=== PATIENT | female | born 1945 | race Caucasian/White ===

== ENCOUNTER → 2017-02-01 | Outpatient (CLI) | payer MEDICARE ==
[~2017-02-01] MED LIST: ALBU2.5I INH; ENAL10TA PO; FLUT1INH7 INH; IPRA0.02 NEB; MEDR4PAK PO; MULTCHW PO; NIFE1TAB85 PO; PRED20 PO; ZOFR4TAB3 SL
[2017-02-01 13:54] LABS: BLOOD GAS CARBOXYHEMOGLOBIN 2.3 % (0-4); BLOOD GAS HCO3 22 mmol/L (22-26); BLOOD GAS O2 HGB SATURATION 89 % (90-100); BLOOD GAS OXYGEN CONTENT 17.6 Vol % (12.0-20.0); BLOOD GAS PCO2 27 mmHg (38-42); BLOOD GAS PO2 53 mmHg (61-120); TEMP CORR TO 98.6
[2017-02-01 13:55] LABS: CRITICAL VALUE YES; DRAW SITE RT RADIAL; LITER FLOW 2 L/M; NUMBER OF ARTERIAL PUNCTURES 1; OXYGEN DEVICE NASAL CANNULA; STAT NO; ULNAR PULSE PRESENT
== END ==
LOC: HRSP 12:29
PROVIDERS: ATTEND Internal Medicine Sleep Medicine
DX: R06.89 Other abnormalities of breathing (principal)
CPT/HCPCS: 36600; 82805

== ENCOUNTER 2017-02-25 16:21 | Emergency (ER) | payer MEDICARE ==
[~2017-02-25] VITALS: Ht 157.5 cm; Wt 81.0 kg
[~2017-02-25 16:21] MED LIST changes: -ENAL10TA PO; -FLUT1INH7 INH; -MEDR4PAK PO
[2017-02-25 16:24] VITALS: BP 146/67; PULSE 112; RESP 20; TEMP 99.1; O2SAT 86
[2017-02-25] MEDS ORDERED: FLUT1INH7 INH (16:49)
[2017-02-25] MEDS ORDERED: ENAL10TA PO (16:49)
[2017-02-25] MEDS ORDERED: ORPHENADRINE INJ 60 MG/2 ML AMP IM ONE (17:00)
[2017-02-25] MEDS ORDERED: methylPREDNISolone SOD SUCC 125 MG/2 ML VIAL IM ONE (17:00)
--- NOTE | 2017-02-25 17:00 | PD ---
HPI Chief Complaint: Pain: Acute or Chronic Time Seen by Provider: 16:44 Travel History International Travel<30 days: No Contact w/Intl Traveler<30days: No Traveled to known affect area: No History of Present Illness HPI 71-year-old female presents to the emergency department for acute on chronic left sciatic pain that is worsened over the last week. States that she has had this pain for a while but in the last 2 days has really been worse. Describes the pain as severe. Nothing seems to make it better or worse. Tylenol or Motrin [id number] have not helped. She does have a history of COPD oxygen dependent. She denies weakness, loss of bowel or bladder function, fever , chills, chest pain, abdominal pain, trauma, personal history of cancer. PFSH Past Medical History Autoimmune Disease: No Anxiety: No Depression: No Cancer: No Cardiovascular Problems: No High Cholesterol: Yes (STOP TAKING MEDICATION) Chest Pain: No Diabetes: No Endocrine: No Gastrointestinal Disorders: Yes (HX COLOSTOMY, GWENDOLYN) GERD: No Glaucoma: No Genitourinary: Yes Hepatitis: No Hiatal Hernia: No Hypertension: Yes Immune Disorder: No Implanted Vascular Access Dvce: Yes Kidney Stones: No Musculoskeletal: Yes Neurologic: No Psychiatric: No Reproductive: No Respiratory: Yes (COPD) Renal Failure: No Sleep Apnea: No Thyroid Disease: No Ulcer: No ?: Not Past Surgical History Abdominal Surgery: Yes (UMBILICAL HERNIA, COLOSTOMY; CHOLECYSTECTOMY) AICD: No Arteriovenous Shunt: No Body Medical Devices: PROCEED MESH UMBILICAL HERNIA REPAIR Cardiac Surgery: No Cholecystectomy: Yes (2000) Ear Surgery: No Endocrine Surgery: No Eye Surgery: No Genitourinary Surgery: No Gynecologic Surgery: No Insulin Pump: No Joint Replacement: No Oral Surgery: No Pacemaker: No Thoracic Surgery: No Other Surgery: Yes Social History Alcohol Use: No Tobacco Use: No (1 1/2 PACKS DAY X 47 YEARS) Substance Use: No Allergies-Medications (Allergen,Severity, Reaction): Coded Allergies: hydrocodone (Unverified Adverse Reaction, Intermediate, emesis, 02/25/17) Uncoded Allergies: NOT ALLERGIC TO LOPID OR LISINOPRIL STATES PATIENT (Adverse Reaction, Mild, 06/07/10) Reported Meds & Prescriptions Reported Meds & Active Scripts Active Medrol Dosepak (Methylprednisolone) 4 Mg Dspk 4 Mg PO DIRECTED Per Pharmacist direction Atrovent Ud 0.02% (0.5 Mg/2.5 Ml) (Ipratropium Basile) 0.5 Mg/2.5 Ml Nebu 0.5 Mg NEB Q6HR NEB PRN Resp: Albuterol 2.5 Mg/3 Ml Neb (Albuterol Sulfate) 2.5 Mg/3 Ml Nebu 2.5 Mg INH Q6H PRN Reported Enalapril (Enalapril Maleate) 10 Mg Tab 10 Mg PO DAILY Breo Ellipta Inh (Fluticasone/Vilanterol) 200-25 Mcg/Act Inh 1 Puff INH BID Use daily at the same time. Review of Systems Except as stated in HPI: all other systems reviewed are Neg Physical Exam Narrative GENERAL: Well-developed well-nourished SKIN: Focused skin assessment warm/dry. HEAD: Atraumatic. Normocephalic. [place]blood facies EYES: Pupils equal and round. No scleral icterus. No injection or drainage. ENT: No nasal bleeding or discharge. Mucous membranes pink and moist. NECK: Trachea midline. No JVD. CARDIOVASCULAR: Regular rate and rhythm. No murmur appreciated. RESPIRATORY: No accessory muscle use. Clear to auscultation. Breath sounds equal bilaterally. GASTROINTESTINAL: Abdomen soft, non-tender, nondistended. Hepatic and splenic margins not palpable. MUSCULOSKELETAL: No obvious deformities. No clubbing. No cyanosis. No edema. BACK: No CVA tenderness. No rash. No point tenderness on palpation of the spine. Tenderness to palpation of the left gluteus NEUROLOGICAL: Awake and alert. No obvious cranial nerve deficits. Motor grossly within normal limits. Normal speech. PSYCHIATRIC: Appropriate mood and affect; insight and judgment normal. Data Data Last Documented VS Vital Signs Date Time Temp Pulse Resp B/P (MAP) Pulse Ox O2 Delivery O2 Flow Rate FiO2 02/25/17 16:24 99.1 112 20 146/67 (93) 86 Orders Orders Methylprednisolone So Succ Inj (Solumedr (02/25/17 17:00) Orphenadrine Inj (Norflex Inj) (02/25/17 17:00) Ed Discharge Order (02/25/17 17:07) MDM Medical Decision Making Medical Screen Exam Complete: Yes Emergency Medical Condition: Yes Differential Diagnosis Left sciatica versus low back sprain versus strain Narrative Course 71-year-old female presents to emergency Department complaining of acute on chronic left sciatica pain. States that she has been treated for this before but the last 2 days has been the worse. Her pain radiates from her left gluteal to the toes. No red flag symptoms or history. No IVDU. Physical exam is consistent with sciatica pain. Examination of the spine demonstrates no step-off, crepitus, or tenderness. Neurovascularly intact. Solu Medrol and Norflex in the ED. Advised patient to return to her primary care physician for further treatment and evaluation Advised when to return to the emergency department Diagnosis Primary Impression: Sciatica Qualified Codes: M54.32 - Sciatica, left side Referrals: Orthopedist Primary Care Physician Additional Instructions: Perform light stretches of the lower back and legs, and alternate heat and ice packs. If you develop increased pain, weakness, fever, chills, or bowel or bladder issues, return to the ED for further treatment and evaluation. Follow up with your primary care physician in 2-3 days. Scripts Methylprednisolone Dosepak (Medrol Dosepak) 4 Mg Dspk 4 MG PO DIRECTED, #1 DSPK 0 Refills Per Pharmacist direction Prov: Billy Ramos MD 02/25/17 Disposition: 01 DISCHARGE HOME Condition: Stable Madelaine Montemayor Feb 25, 2017 17:00
[2017-02-25] MEDS ORDERED: MEDR4PAK PO (17:14)
== END 2017-02-25 17:24 | disposition home or self-care (01) ==
LOC: PHEFT 16:21
DX: M54.32 Sciatica, left side (principal); I10 Essential (primary) hypertension; J44.9 Chronic obstructive pulmonary disease, unspecified; Z87.891 Personal history of nicotine dependence; Z99.81 Dependence on supplemental oxygen
CPT/HCPCS: 96372; 99284; J2360; J2930

== ENCOUNTER 2017-04-07 10:24 | Observation (INO) | payer MEDICARE ==
[~2017-04-07] VITALS: Ht 157.5 cm; Wt 88.9 kg
[2017-04-07] VITALS (18 sets, daily range): BP systolic 140–212; BP diastolic 60–91; PULSE 90–124; RESP 18–36; TEMP 96.5–98.4; O2SAT 86–94
[~2017-04-07 10:24] MED LIST changes: +ENAL10TA PO; +FLUT1INH7 INH; +MEDR4PAK PO; -MULTCHW PO; -NIFE1TAB85 PO; -PRED20 PO; -ZOFR4TAB3 SL
[2017-04-07] MEDS ORDERED: IODIXANOL 320 MG/ML 10 ML VIAL (for Rad CT) IVCONTRAST ONE (10:25)
[2017-04-07] MEDS ORDERED: CENTCHW4 CHEW (10:34)
[2017-04-07] MEDS ORDERED: IPRASOL INH (10:34)
[2017-04-07] MEDS ORDERED: THEO600T PO (10:34)
[2017-04-07] MEDS ORDERED: IBUP200T47 PO (10:34)
[2017-04-07] MEDS ORDERED: MONT10TA4 PO (10:34)
[2017-04-07] MEDS ORDERED: FLUT1INH INH (10:34)
[2017-04-07] MEDS ORDERED: CETI-6 (10:35)
[2017-04-07] MEDS ORDERED: methylPREDNISolone SOD SUCC 125 MG/2 ML VIAL IV PUSH ONE (10:45)
[2017-04-07] MEDS: RESP: ALBUTEROL 2.5 MG/IPRATROPIUM 0.5 MG NEB (SCH) INH ×2 (10:50→10:51)
[2017-04-07 10:53] LABS: AUTOMATED NEUTROPHIL # 9.4 TH/MM3 (1.8-7.7); BASOPHIL # 0.3 TH/MM3 (0-0.2); BASOPHIL % 2.1 % (0.0-2.0); EOSINOPHIL # 0.5 TH/MM3 (0-0.4); EOSINOPHIL % 3.6 % (0.0-4.0); HEMATOCRIT 40.8 % (35.0-46.0); HEMO FLAGS DIFF FINAL; LYMPH % 15.7 % (9.0-44.0); MEAN CELL VOLUME 90.9 FL (80.0-100.0); MEAN CORPUSCULAR HEMOGLOBIN 29.6 PG (27.0-34.0); MEAN CORPUSCULAR HGB CONC 32.6 % (32.0-36.0); MONO % 4.1 % (0.0-8.0); NEUT % 74.5 % (16.0-70.0); PLATELET COUNT 273 TH/MM3 (150-450); RED BLOOD COUNT 4.49 MIL/MM3 (4.00-5.30); RED CELL DISTRIBUTION WIDTH 14.8 % (11.6-17.2); WHITE BLOOD COUNT 12.7 TH/MM3 (4.0-11.0)
[2017-04-07 10:57] LABS: CHLORIDE 109 MEQ/L (98-107); POTASSIUM 3.6 MEQ/L (3.5-5.1); SODIUM (NA) 144 MEQ/L (136-145)
[2017-04-07 11:00] LABS: ANION GAP 11 MEQ/L (5-15); BICARBONATE 23.9 MEQ/L (21.0-32.0)
[2017-04-07 11:01] LABS: BLOOD UREA NITROGEN 17 MG/DL (7-18)
[2017-04-07 11:04] LABS: ALT (GPT) 44 U/L (10-53); AST (GOT) 34 U/L (15-37); GLOMERULAR FILTRATION RATE 34 ML/MIN (>89)
[2017-04-07 11:05] LABS: TOTAL BILIRUBIN ADULT 0.6 MG/DL (0.2-1.0)
[2017-04-07 11:07] LABS: ALKALINE PHOSPHATASE 82 U/L (45-117)
[2017-04-07 11:29] LABS: BLOOD GAS CARBOXYHEMOGLOBIN 2.2 % (0-4); BLOOD GAS HCO3 25 mmol/L (22-26); BLOOD GAS METHEMOGLOBIN 0.8 % (0-2); BLOOD GAS O2 HGB SATURATION 89 % (90-100); BLOOD GAS OXYGEN CONTENT 16.2 Vol % (12.0-20.0); BLOOD GAS PCO2 31 mmHG (38-42); BLOOD GAS PO2 61 mmHG (61-120); BLOOD GAS TOTAL HGB 12.9 G/DL (12.0-16.0); TEMP CORR TO 98.6
[2017-04-07 11:30] LABS: CRITICAL VALUE YES; DRAW SITE LT RADIAL; NUMBER OF ARTERIAL PUNCTURES 1; OXYGEN DEVICE NASAL CANNULA; STAT YES; ULNAR PULSE Y; VENT SETTINGS 4
--- NOTE | 2017-04-07 11:47 | PD ---
HPI Chief Complaint: Respiratory Symptoms Time Seen by Provider: 10:37 Travel History International Travel<30 days: No Contact w/Intl Traveler<30days: No Traveled to known affect area: No History of Present Illness HPI 71-year-old female complains of shortness of breath. Patient has history of COPD and chronically has shortness of breath. Patient's on home O2 3 L nasal cannula. Patient states that she has increasing shortness of breath with the past few days. Patient denies any coughing congestion. Patient denies any fever chills. Patient denies any chest pain. Patient has been using her nebulizer at home about twice a day. Patient also on Breo inhaler, theophylline , montelukast. PFSH Past Medical History Autoimmune Disease: No Anxiety: No Depression: No Cancer: No Cardiovascular Problems: No High Cholesterol: Yes (STOP TAKING MEDICATION) Chest Pain: No COPD: Yes Diabetes: No Diminished Hearing: No Endocrine: No Gastrointestinal Disorders: Yes (HX COLOSTOMY, GWENDOLYN) GERD: No Glaucoma: No Genitourinary: Yes Hepatitis: No Hiatal Hernia: No Hypertension: Yes Immune Disorder: No Implanted Vascular Access Dvce: Yes Kidney Stones: No Musculoskeletal: Yes (LOWER BACK PAIN) Neurologic: No Psychiatric: No Reproductive: No Respiratory: Yes (COPD) Renal Failure: No Sleep Apnea: No Thyroid Disease: No Ulcer: No Tetanus Vaccination: > 5 Years Influenza Vaccination: Yes Past Surgical History Abdominal Surgery: Yes (UMBILICAL HERNIA, COLOSTOMY; CHOLECYSTECTOMY) AICD: No Arteriovenous Shunt: No Body Medical Devices: PROCEED MESH UMBILICAL HERNIA REPAIR Cardiac Surgery: No Cholecystectomy: Yes (2000) Ear Surgery: No Endocrine Surgery: No Eye Surgery: No Genitourinary Surgery: No Gynecologic Surgery: No Insulin Pump: No Joint Replacement: No Oral Surgery: No Pacemaker: No Thoracic Surgery: No Other Surgery: Yes Social History Alcohol Use: No Tobacco Use: No (1 1/2 PACKS DAY X 47 YEARS) Substance Use: No Allergies-Medications (Allergen,Severity, Reaction): Coded Allergies: hydrocodone (Unverified Adverse Reaction, Intermediate, emesis, 04/07/17) Uncoded Allergies: NOT ALLERGIC TO LOPID OR LISINOPRIL STATES PATIENT (Adverse Reaction, Mild, 06/07/10) Reported Meds & Prescriptions Reported Meds & Active Scripts Active Reported Eq Allergy Relief (Cetirizine HCl) 10 Mg Tab Duoneb (Ipratropium-Albuterol Neb) 0.5-2.5 Mg/3 Ml Neb 1 Nebule INH Q4HR NEB Centrum (Multiple Vitamins W/ Minerals) 1 Chew 1 Tab CHEW DAILY Ibuprofen 200 Mg Tab 200 Mg PO Q4H PRN Montelukast (Montelukast Sodium) 10 Mg Tab 10 Mg PO HS Theophylline ER 24 HR (Theophylline) 600 Mg Tab 600 Mg PO DAILY Breo Ellipta Inh (Fluticasone/Vilanterol) 100-25 Mcg/Act Inh 1 Puff INH DAILY Use daily at the same time. Review of Systems General / Constitutional: No: Fever Eyes: No: Visual changes HENT: No: Headaches Cardiovascular: No: Chest Pain or Discomfort Respiratory: Positive: Shortness of Breath Gastrointestinal: No: Abdominal Pain Genitourinary: No: Dysuria Musculoskeletal: No: Pain Skin: No Rash Neurologic: No: Weakness Psychiatric: No: Depression Endocrine: No: Polydipsia Hematologic/Lymphatic: No: Easy Bruising Physical Exam Narrative GENERAL: Well-nourished, well-developed patient. SKIN: Focused skin assessment warm/dry. HEAD: Normocephalic. EYES: No scleral icterus. No injection or drainage. NECK: Supple, trachea midline. No JVD or lymphadenopathy. CARDIOVASCULAR: Regular rate and rhythm without murmurs, gallops, or rubs. RESPIRATORY: Breath sounds equal bilaterally. No accessory muscle use. Patient has mild expiratory wheezes bilaterally. Few rhonchi at the bases. GASTROINTESTINAL: Abdomen soft, non-tender, nondistended. MUSCULOSKELETAL: No cyanosis, or edema. BACK: Nontender without obvious deformity. No CVA tenderness. Neurologic exam normal. Data Data Last Documented VS Vital Signs Date Time Temp Pulse Resp B/P (MAP) Pulse Ox O2 Delivery O2 Flow Rate FiO2 04/07/17 12:24 111 26 183/74 (110) 88 Nasal Cannula 4.00 04/07/17 10:50 98.4 Orders Orders Sepsis Workup Initiated (04/07/17 ) Complete Blood Count With Diff (04/07/17 10:28) Comprehensive Metabolic Panel (04/07/17 10:28) Lactic Acid Sepsis Protocol (04/07/17 10:28) Blood Culture (04/07/17 10:28) Iv Access Insert/Monitor (04/07/17 10:28) Oxygen Administration (04/07/17 10:28) Oximetry (04/07/17 10:28) Chest, Single Ap (04/07/17 ) Influenzae A/B Antigen (04/07/17 10:38) Ecg Monitoring (04/07/17 10:38) Sodium Chloride 0.9% Flush (Ns Flush) (04/07/17 10:45) Methylprednisolone So Succ Inj (Solumedr (04/07/17 10:45) Albuterol-Ipratropium Neb (Duoneb Neb) (04/07/17 10:45) Arterial Blood Gas (Abg) (04/07/17 ) Ct Pulmonary Angiogram (04/07/17 11:44) Iodixanol 320 Inj (Rad Ct) (Visipaque 32 (04/07/17 10:25) Labs Laboratory Tests Test 04/07/17 10:40 04/07/17 11:25 White Blood Count 12.7 TH/MM3 Red Blood Count 4.49 MIL/MM3 Hemoglobin 13.3 GM/DL Hematocrit 40.8 % Mean Corpuscular Volume 90.9 FL Mean Corpuscular Hemoglobin 29.6 PG Mean Corpuscular Hemoglobin Concent 32.6 % Red Cell Distribution Width 14.8 % Platelet Count 273 TH/MM3 Mean Platelet Volume 8.0 FL Neutrophils (%) (Auto) 74.5 % Lymphocytes (%) (Auto) 15.7 % Monocytes (%) (Auto) 4.1 % Eosinophils (%) (Auto) 3.6 % Basophils (%) (Auto) 2.1 % Neutrophils # (Auto) 9.4 TH/MM3 Lymphocytes # (Auto) 2.0 TH/MM3 Monocytes # (Auto) 0.5 TH/MM3 Eosinophils # (Auto) 0.5 TH/MM3 Basophils # (Auto) 0.3 TH/MM3 CBC Comment DIFF FINAL Differential Comment Blood Urea Nitrogen 17 MG/DL Creatinine 1.50 MG/DL Random Glucose 142 MG/DL Total Protein 7.8 GM/DL Albumin 3.7 GM/DL Calcium Level 9.1 MG/DL Alkaline Phosphatase 82 U/L Aspartate Amino Transf (AST/SGOT) 34 U/L Alanine Aminotransferase (ALT/SGPT) 44 U/L Total Bilirubin 0.6 MG/DL Sodium Level 144 MEQ/L Potassium Level 3.6 MEQ/L Chloride Level 109 MEQ/L Carbon Dioxide Level 23.9 MEQ/L Anion Gap 11 MEQ/L Estimat Glomerular Filtration Rate 34 ML/MIN Lactic Acid Level 2.9 mmol/L Blood Gas Puncture Site LT RADIAL Blood Gas Patient Temperature 98.6 Blood Gas HCO3 25 mmol/L Blood Gas Base Excess 2.0 mmol/L Blood Gas Oxygen Saturation 89 % Arterial Blood pH 7.51 Arterial Blood Partial Pressure CO2 31 mmHG Arterial Blood Partial Pressure O2 61 mmHG Arterial Blood Oxygen Content 16.2 Vol % Arterial Blood Carboxyhemoglobin 2.2 % Arterial Blood Methemoglobin 0.8 % Blood Gas Hemoglobin 12.9 G/DL Oxygen Delivery Device NASAL CANNULA Blood Gas Ventilator Setting 4 [facility] Medical Decision Making Medical Screen Exam Complete: Yes Emergency Medical Condition: Yes Interpretation(s) 11:45 AM. ABG pH 7.51. PCO2 31. PO2 61. O2 sat 89%. CBC within normal limit. With WBC 12.7. 74 neutrophil. Lactic acid 2.9. Creatinine 1.5. Influenza AB antigen negative. Differential Diagnosis Differential diagnosis including acute exacerbation COPD, bronchitis, pneumonia , PE, pneumothorax. Narrative Course 71-year-old female with shortness of breath. History of COPD. Albuterol with Atrovent unit dose treatment 2. Solu-Medrol 125 mg IV. Rocephin 1 g IV. Zithromax 500 mg IV. Diagnosis Primary Impression: COPD with acute exacerbation Arnaldo Tovar MD Apr 07, 2017 11:47
--- NOTE | 2017-04-07 11:48 | RADRPT ---
EXAM DATE/TIME: 04/07/2017 11:38 [facility] COMPARISON: CHEST SINGLE AP, October 29, 2015, 9:42. INDICATIONS : Short of breath MEDICAL HISTORY : Chronic obstructive pulmonary disease. Emphysema. SURGICAL HISTORY : None. ENCOUNTER: Initial ACUITY: 1 week PAIN SCORE: 0/10 LOCATION: Bilateral chest FINDINGS: A single view of the chest demonstrates interstitial densities greater lower lobes. Heart borderline enlarged. Osseous structures are intact. CONCLUSION: Interstitial densities likely chronic. Molina Meneses MD on April 07, 2017 at 11:46 Board Certified Radiologist. This report was verified electronically.
--- NOTE | 2017-04-07 12:37 | RADRPT ---
EXAM DATE/TIME: 04/07/2017 12:10 [facility] COMPARISON: CT THORAX W/O CONTRAST, October 30, 2015, 14:00. INDICATIONS : Increasing shortness of breath. IV CONTRAST: 49 cc Visipaque (iodixanol) IV RADIATION DOSE: 21.56 CTDIvol (mGy) MEDICAL HISTORY : Hypertension. Chronic obstructive pulmonary disease. SURGICAL HISTORY : Cholecystectomy. ENCOUNTER: Initial ACUITY: 2 days PAIN SCALE: 0/10 LOCATION: Bilateral chest TECHNIQUE: Volumetric scanning of the chest was performed using a pulmonary embolism protocol MIP images were re constructed. Using automated exposure control and adjustment of the mA and/or kV according to patien t size, radiation dose was kept as low as reasonably achievable to obtain optimal diagnostic quality images. DICOM format image data is available electronically for review and comparison. Follow-up recommendations for detected pulmonary nodules are based at a minimum on nodule size and pa tient risk factors according to Fleischner Society Guidelines. FINDINGS: PULMONARY ARTERIES: No filling defects are seen in the pulmonary arteries through the segmental level. LUNGS: There is no consolidation or pneumothorax . No concerning pulmonary nodule is visualized. Severe emp hysema. 5 mm nodule right lateral upper lobe. PLEURAE: There is no pleural thickening or pleural effusion. MEDIASTINUM: Scattered borderline prominent mediastinal lymph nodes, the largest in subcarinal location measuring 1.3 cm in short axis.. MUSCULOSKELETAL: Within normal limits for patient age. MISCELLANEOUS: The visualized upper abdominal organs demonstrate no acute abnormality. CONCLUSION: 1. Severe emphysema with stable right upper lobe nodule. 2. No evidence for pulmonary embolism 3. Multiple borderline enlarged mediastinal lymph nodes which are more prominent on current study. Molina Meneses MD on April 07, 2017 at 12:31 Board Certified Radiologist. This report was verified electronically.
[2017-04-07 12:43] LABS: LACTIC ACID GHOST NOT REPORTABLE
[2017-04-07] MEDS ORDERED: cefTRIAXone INJ 1,000 MG in SODIUM CHLORIDE 0.9% INJ 100 ML IV ONE (13:00)
[2017-04-07] MEDS ORDERED: AZITHROMYCIN INJ 500 MG in SODIUM CHLOR 0.9% 250 ML INJ 250 ML IV ONE (13:00)
[2017-04-07] MEDS: RESP: ALBUTEROL 2.5 MG/IPRATROPIUM 0.5 MG NEB (SCH) NEB ×2 (15:08→19:51)
--- NOTE | 2017-04-07 17:29 | HHI.HP ---
HPI Service [facility] Hospitalists Primary Care Physician Neal Ortiz MD Admission Diagnosis acute exacerbation COPD Chief Complaint: severe shortness of breath progressive over last several days Travel History International Travel<30 Days: No Contact w/Intl Traveler <30 Da: No Traveled to Known Affected Are: No Sepsis Criteria SIRS Criteria (2 or more): RR > 20 or PaCO2 < 32, WBC > 54767, < 4000 or > 10 % bands History of Present Illness 71-year-old female complains of shortness of breath. Patient has history of COPD and chronically has shortness of breath. Patient's on home O2 3 L nasal cannula. Patient states that she has increasing shortness of breath with the past few days. Patient denies any coughing congestion. Patient denies any fever chills. Patient denies any chest pain. Patient has been using her nebulizer at home about twice a day. Patient also on Breo inhaler, theophylline , montelukast. Patient becomes hypoxic on any movement . Recently has been on steroid taper and has had some nasal congestion. In er had ABG done and oxygen sat 89% despite oxygen will admit and may need to go to IMC.. Review of Systems Respiratory: COMPLAINS OF: Shortness of breath Cardiovascular: COMPLAINS OF: Dyspnea on Exertion Past Family Social History Past Medical History severe oxygen dependent copd,hypertension Past Surgical History colon surgery ,umbilical hernia surgery,gallbladder mesh Reported Medications Eq Allergy Relief (Cetirizine HCl) 10 Mg Tab Duoneb (Ipratropium-Albuterol Neb) 0.5-2.5 Mg/3 Ml Neb 1 Nebule INH Q4HR NEB Centrum (Multiple Vitamins W/ Minerals) 1 Chew 1 Tab CHEW DAILY Ibuprofen 200 Mg Tab 200 Mg PO Q4H PRN Montelukast (Montelukast Sodium) 10 Mg Tab 10 Mg PO HS Theophylline ER 24 HR (Theophylline) 600 Mg Tab 600 Mg PO DAILY Breo Ellipta Inh (Fluticasone/Vilanterol) 100-25 Mcg/Act Inh 1 Puff INH DAILY Use daily at the same time. Allergies: Coded Allergies: hydrocodone (Unverified Adverse Reaction, Intermediate, emesis, 04/07/17) Uncoded Allergies: NOT ALLERGIC TO LOPID OR LISINOPRIL STATES PATIENT (Adverse Reaction, Mild, 06/07/10) Social History former smoker 1 /2 ppd for 47 years Physical Exam Vital Signs Vital Signs Date Time Temp Pulse Resp B/P (MAP) Pulse Ox O2 Delivery O2 Flow Rate FiO2 04/07/17 16:59 124 04/07/17 15:55 96.5 116 36 187/91 (123) 88 04/07/17 15:33 04/07/17 14:32 91 Nasal Cannula 5.00 04/07/17 14:28 103 24 180/75 (110) 86 4.00 04/07/17 14:22 Nasal Cannula 4.00 04/07/17 13:53 104 26 180/74 (109) 91 Nasal Cannula 4.00 04/07/17 12:24 111 26 183/74 (110) 88 Nasal Cannula 4.00 04/07/17 11:37 111 22 188/88 (121) 88 Nasal Cannula 4.00 04/07/17 11:19 Nasal Cannula 5.00 04/07/17 10:59 103 26 190/73 (112) 93 Nasal Cannula 5.00 04/07/17 10:50 98.4 105 28 212/83 (126) 93 Nasal Cannula 5.00 04/07/17 10:48 (126) 04/07/17 10:42 80 Nasal Cannula 3.00 04/07/17 10:42 93 Nasal Cannula 5.00 04/07/17 10:42 98.4 105 28 212/83 (126) 93 Nasal Cannula 5.00 04/07/17 10:42 93 Nasal Cannula 5.00 Physical Exam GENERAL: This is a well-nourished, well-developed patient, in no apparent distress. SKIN: No rashes, ecchymoses or lesions. Cool and dry. HEAD: Atraumatic. Normocephalic. No temporal or scalp tenderness. EYES: Pupils equal round and reactive. Extraocular motions intact. No scleral icterus. No injection or drainage. ENT: Nose without bleeding, purulent drainage or septal hematoma. Throat without erythema, tonsillar hypertrophy or exudate. Uvula midline. Airway patent. NECK: Trachea midline. No JVD or lymphadenopathy. Supple, nontender, no meningeal signs. CARDIOVASCULAR: Regular rate and rhythm without murmurs, gallops, or rubs. RESPIRATORY: Decrease breath sounds bilateral GASTROINTESTINAL: Abdomen soft, non-tender, nondistended. No hepato-splenomegaly , or palpable masses. No guarding. MUSCULOSKELETAL: Extremities without clubbing, cyanosis, or edema. No joint tenderness, effusion, or edema noted. No calf tenderness. Negative Homans sign bilaterally. NEUROLOGICAL: Awake and alert. Cranial nerves II through XII intact. Motor and sensory grossly within normal limits. Five out of 5 muscle strength in all muscle groups. Normal speech. Laboratory Laboratory Tests Test 04/07/17 10:40 04/07/17 11:25 04/07/17 13:00 White Blood Count 12.7 Red Blood Count 4.49 Hemoglobin 13.3 Hematocrit 40.8 Mean Corpuscular Volume 90.9 Mean Corpuscular Hemoglobin 29.6 Mean Corpuscular Hemoglobin Concent 32.6 Red Cell Distribution Width 14.8 Platelet Count 273 Mean Platelet Volume 8.0 Neutrophils (%) (Auto) 74.5 Lymphocytes (%) (Auto) 15.7 Monocytes (%) (Auto) 4.1 Eosinophils (%) (Auto) 3.6 Basophils (%) (Auto) 2.1 Neutrophils # (Auto) 9.4 Lymphocytes # (Auto) 2.0 Monocytes # (Auto) 0.5 Eosinophils # (Auto) 0.5 Basophils # (Auto) 0.3 CBC Comment DIFF FINAL Differential Comment Blood Urea Nitrogen 17 Creatinine 1.50 Random Glucose 142 Total Protein 7.8 Albumin 3.7 Calcium Level 9.1 Alkaline Phosphatase 82 Aspartate Amino Transf (AST/SGOT) 34 Alanine Aminotransferase (ALT/SGPT) 44 Total Bilirubin 0.6 Sodium Level 144 Potassium Level 3.6 Chloride Level 109 Carbon Dioxide Level 23.9 Anion Gap 11 Estimat Glomerular Filtration Rate 34 Lactic Acid Level 2.9 1.8 Blood Gas Puncture Site LT RADIAL Blood Gas Patient Temperature 98.6 Blood Gas HCO3 25 Blood Gas Base Excess 2.0 Blood Gas Oxygen Saturation 89 Arterial Blood pH 7.51 Arterial Blood Partial Pressure CO2 31 Arterial Blood Partial Pressure O2 61 Arterial Blood Oxygen Content 16.2 Arterial Blood Carboxyhemoglobin 2.2 Arterial Blood Methemoglobin 0.8 Blood Gas Hemoglobin 12.9 Oxygen Delivery Device NASAL CANNULA Blood Gas Ventilator Setting 4 Date/Time Source Procedure Growth Status 04/07/17 10:55 Blood Peripheral Aerobic Blood Culture Pending Received 04/07/17 10:55 Blood Peripheral Anaerobic Blood Culture Pending Received 04/07/17 10:55 Nasal Washing Influenza Types A,B Antigen (BINH) - Final NEGATIVE FOR FLU A AND B ANTIGEN.... Complete Result Diagram: 04/07/17 1040 04/07/17 1040 Imaging Last [address] Angiography 04/07/17 1144 Signed Impressions: Service Date/Time: Friday, April 07, 2017 12:10 - CONCLUSION: 1. Severe emphysema with stable right upper lobe nodule. 2. No evidence for pulmonary embolism 3. Multiple borderline enlarged mediastinal lymph nodes which are more prominent on current study. Molina Meneses MD Chest X-Ray 04/07/17 0000 Signed Impressions: Service Date/Time: Friday, April 07, 2017 11:38 - CONCLUSION: Interstitial densities likely chronic. Molina Meneses MD Course in er given solumedrol,nebulizer rocephin Caprini VTE Risk Assessment Caprini VTE Risk Assessment: Mod/High Risk (score >= 2) Caprini Risk Assessment Model Point Value = 1 Point Value = 2 Point Value = 3 Point Value = 5 Age 41-60 Minor surgery BMI > 25 kg/m2 Swollen legs Varicose veins or History of unexplained or recurrent spontaneous Oral contraceptives or hormone replacement Sepsis (< 1 month) Serious lung disease, including pneumonia (< 1 month) Abnormal pulmonary function Acute myocardial infarction Congestive heart failure (< 1 month) History of inflammatory bowel disease Medical patient at bed rest Age 61-74 Arthroscopic surgery Major open surgery (> 45 min) Laparoscopic surgery (> 45 min) Malignancy Confined to bed (> 72 hours) Immobilizing plaster cast Central venous access Age >= 75 History of VTE Family history of VTE Factor V Leiden Prothrombin [id number] Lupus anticoagulant Anticardiolipin antibodies Elevated serum homocysteine Heparin-induced thrombocytopenia Other congenital or acquired thrombophilia Stroke (< 1 month) Elective arthroplasty Hip, pelvis, or leg fracture Acute spinal cord injury (< 1 month) Prophylaxis Regimen Total Risk Factor Score Risk Level Prophylaxis Regimen 0-1 Low Early ambulation 2 Moderate Order ONE of the following: *Sequential Compression Device (SCD) *Heparin 5000 units SQ BID 3-4 Higher Order ONE of the following medications: *Heparin 5000 units SQ TID *Enoxaparin/Lovenox 40 mg SQ daily (WT < 150 kg, CrCl > 30 mL/min) *Enoxaparin/Lovenox 30 mg SQ daily (WT < 150 kg, CrCl > 10-29 mL/min) *Enoxaparin/Lovenox 30 mg SQ BID (WT < 150 kg, CrCl > 30 mL/min) AND/OR *Sequential Compression Device (SCD) 5 or more Highest Order ONE of the following medications: *Heparin 5000 units SQ TID (Preferred with Epidurals) *Enoxaparin/Lovenox 40 mg SQ daily (WT < 150 kg, CrCl > 30 mL/min) *Enoxaparin/Lovenox 30 mg SQ daily (WT < 150 kg, CrCl > 10-29 mL/min) *Enoxaparin/Lovenox 30 mg SQ BID (WT < 150 kg, CrCl > 30 mL/min) AND *Sequential Compression Device (SCD) Assessment and Plan Problem List: (1) COPD with acute exacerbation ICD Codes: J44.1 - Chronic obstructive pulmonary disease with (acute) exacerbation Status: Acute Plan: admit may need IMC will consult pulmonary continue nebulizer iv steroids antibiotics oxygen respiratory therapy (2) HTN (hypertension) ICD Codes: I10 - Essential (primary) hypertension Status: Chronic Plan: will use vasotec prn for elevations Assessment and Plan further plan as case develops does meet sirs criteria initial lactic acid was positive but repeat normal CTA severe COPD Code Status full discussed with patient Discussed Condition With patient Physician Certification 2 Midnight Certification Type: Admission for Inpatient Services Order for Inpatient Services The services are ordered in accordance with Medicare regulations or non- Medicare payer requirements, as applicable. In the case of services not specified as inpatient-only, they are appropriately provided as inpatient services in accordance with the 2-midnight benchmark. Estimated LOS (days): 3 3 days is the estimated time the patient will need to remain in the hospital, assuming treatment plan goals are met and no additional complications. Post-Hospital Plan: Not yet determined Radhames Carrion MD Apr 07, 2017 17:29
[2017-04-07] MEDS ORDERED: ENALAPRILAT 1.25 MG/ML VIAL IV PUSH PRN (17:45)
--- NOTE | 2017-04-07 18:53 | MB ---
cc: SHERRILL MCCARTNEY M.D. DATE OF CONSULTATION: 04/07/2017. REASON FOR CONSULTATION: Exacerbation of COPD. HISTORY OF PRESENT ILLNESS: Mrs. Page is a 71-year-old female with severe COPD, chronic respiratory failure on home oxygen therapy who had an exacerbation of her COPD in late March. In late February, she was treated with steroids and antibiotics with some improvement again complains of increasing shortness of breath progressively worse for the last three or four days. The patient tells me she had back pain of a severe degree for which she was seen by orthopedic surgery. She was given Tramadol to help her pain; however, she felt she did not breathe very well with it so she stopped taking it. The patient has no cough and no expectoration. No fever. No chills. No hemoptysis. Complains of a stuffy nose on occasion for which she uses Janis. PAST MEDICAL HISTORY: Her past medical history is that of: 1. Severe COPD as mentioned above. 2. Chronic respiratory failure on oxygen therapy. 3. Degenerative joint disease. 4. Previous surgery for umbilical hernia repair. 5. Colon resection. 6. A previous cholecystectomy. ALLERGIES 1.HYDROCODONE. SOCIAL HISTORY: Long smoking history 1-1/2 packs a day 47 years. FAMILY HISTORY: Noncontributory. REVIEW OF SYSTEMS: A twelve-point review of systems is as per the history of present illness and past history, otherwise negative. PHYSICAL EXAMINATION: VITAL SIGNS: On exam, pulse is 106, respirations 22, temperature 97 degrees Fahrenheit. Blood pressure 180/75. Oxygen saturation 92% on four liters oxygen via nasal cannula. HEAD, EYES, EARS, NOSE, THROAT: Unremarkable. Eyes without icterus. NECK: Without adenopathy, thyroid enlargement. CHEST: A few scattered rhonchi bilaterally. CARDIAC: PMI distant. S1-S2 audible. No murmur, no rub. ABDOMEN: Lax. Bowel sounds audible. EXTREMITIES: No cyanosis, clubbing or edema. SKIN: Normal. LYMPHATIC: No lymphadenopathy. LABORATORY DATA: White count 12,000, hemoglobin 13, hematocrit 40, platelets 273,000. Sodium 144, potassium 3.6, BUN 17, creatinine 1.5. IMAGING STUDIES: CT scan of the chest with severe emphysematous change right upper lobe lung nodule noted. No evidence of pulmonary emboli appreciated. Nonspecific mediastinal adenopathy. IMPRESSION: 1. COPD exacerbation. 2. Chronic respiratory failure on oxygen therapy with acute component. PLAN: The patient will be maintained on oxygen therapy, bronchodilator therapy, antibiotic therapy on an empiric basis is appropriate as well. Steroid therapy intravenously has been initiated and appropriately so. We will follow the patient's course along with you and depending on progress proceed further. Sherrill Mccartney MD WWW/PAT /6:15 PM /6:35 PM
[2017-04-07] MEDS: SODIUM CHLORIDE 0.9% FLUSH 10 ML FLUSH IVF PRN (20:26)
[2017-04-07] MEDS: MONTELUKAST SODIUM 10 MG TAB PO SCH (20:27)
[2017-04-07] MEDS: methylPREDNISolone SOD SUCC 40 MG/1 ML VIAL IV PUSH SCH (20:27)
[2017-04-07] MEDS: busPIRone HCL 5 MG TAB PO SCH (20:27)
[2017-04-07] MEDS: RESP: ALBUTEROL 2.5 MG/IPRATROPIUM 0.5 MG NEB (PRN) NEB (23:41)
[2017-04-08] VITALS (26 sets, daily range): BP systolic 108–162; BP diastolic 54–87; PULSE 74–114; RESP 17–33; TEMP 97.2–98.7; O2SAT 80–98
[2017-04-08] MEDS: methylPREDNISolone SOD SUCC 40 MG/1 ML VIAL IV PUSH SCH ×5 (00:07→23:54)
[2017-04-08] MEDS: SODIUM CHLORIDE 0.9% FLUSH 10 ML FLUSH IVF PRN ×2 (00:08→05:04)
[2017-04-08] MEDS: RESP: ALBUTEROL 2.5 MG/IPRATROPIUM 0.5 MG NEB (PRN) NEB (04:25)
[2017-04-08 06:23] LABS: AUTOMATED NEUTROPHIL # 9.2 TH/MM3 (1.8-7.7); BASOPHIL # 0.2 TH/MM3 (0-0.2); EOSINOPHIL % 0.1 % (0.0-4.0); HEMATOCRIT 34.8 % (35.0-46.0); LYMPH % 7.7 % (9.0-44.0); LYMPHOCYTE # 0.8 TH/MM3 (1.0-4.8); MEAN CELL VOLUME 92.3 FL (80.0-100.0); MEAN CORPUSCULAR HEMOGLOBIN 30.8 PG (27.0-34.0); MEAN CORPUSCULAR HGB CONC 33.4 % (32.0-36.0); MONO % 1.2 % (0.0-8.0); PLATELET COUNT 194 TH/MM3 (150-450); RED BLOOD COUNT 3.77 MIL/MM3 (4.00-5.30); RED CELL DISTRIBUTION WIDTH 15.2 % (11.6-17.2); WHITE BLOOD COUNT 10.4 TH/MM3 (4.0-11.0)
[2017-04-08 06:25] LABS: HEMO FLAGS DIFF FINAL
[2017-04-08] MEDS: CETIRIZINE HCL 10 MG TAB PO SCH (08:10)
[2017-04-08] MEDS: busPIRone HCL 5 MG TAB PO SCH ×2 (08:10→21:03)
[2017-04-08] MEDS: MULTIVITAMINS/MINERALS THERAPEUTIC TAB PO SCH (08:10)
[2017-04-08] MEDS: ENALAPRIL MALEATE 10 MG TAB PO SCH (08:10)
[2017-04-08] MEDS: THEOPHYLLINE ER 24 HR 300 MG CAPCR PO SCH (08:11)
[2017-04-08] MEDS: RESP: ALBUTEROL 2.5 MG/IPRATROPIUM 0.5 MG NEB (SCH) NEB ×4 (08:15→19:59)
[2017-04-08 08:43] LABS: BICARBONATE 21.8 MEQ/L (21.0-32.0); POTASSIUM 3.8 MEQ/L (3.5-5.1)
[2017-04-08] MEDS ORDERED: PNEUMOCOCCAL POLYVALENT INJ 25 MCG/0.5 ML SYR IM ONE (09:00)
[2017-04-08] MEDS ORDERED: INFLUENZA VIRUS VACCINE (QUADRIVALENT) 0.5 ML SYR IM ONE (10:00)
--- NOTE | 2017-04-08 10:48 | HHI.PR ---
Subjective Remarks Patient continues to be short of breath did not like ventimask back on nasal oxygen will change sat rate to 89or greater which probably is her baseline. Patient seen by Dr. Stone added steroid inhaler Objective Vitals GENERAL: SKIN: Warm and dry. HEAD: Atraumatic. Normocephalic. EYES: Pupils equal and round. No scleral icterus. No injection or drainage. ENT: No nasal bleeding or discharge. Mucous membranes pink and moist. NECK: Trachea midline. No JVD. CARDIOVASCULAR: Regular rate and rhythm. RESPIRATORY: Decrese breath sounds bilaterally. GASTROINTESTINAL: Abdomen soft, non-tender, nondistended. Hepatic and splenic margins not palpable. MUSCULOSKELETAL: Extremities without clubbing, cyanosis, or edema. No obvious deformities. NEUROLOGICAL: Awake and alert. No obvious cranial nerve deficits. Motor grossly within normal limits. Five out of 5 muscle strength in the arms and legs. Normal speech. PSYCHIATRIC: Appropriate mood and affect; insight and judgment normal. Vital Signs Date Time Temp Pulse Resp B/P (MAP) Pulse Ox O2 Delivery O2 Flow Rate FiO2 04/08/17 08:15 93 Nasal Cannula 6.00 04/08/17 06:00 100 26 153/70 (97) 97 04/08/17 05:00 96 22 139/66 (90) 98 04/08/17 04:26 Partial Rebreather 13.00 04/08/17 04:00 74 04/08/17 04:00 74 19 131/58 (82) 90 04/08/17 03:50 93 Venturi Mask 50 04/08/17 03:24 88 20 131/57 (81) 92 04/08/17 02:53 84 17 139/66 (90) 90 04/08/17 02:00 74 04/08/17 01:30 Venturi Mask 6.00 50 04/08/17 01:00 96 33 142/64 (90) 95 04/08/17 00:12 98.7 92 19 144/64 (90) 92 04/08/17 00:00 108 04/07/17 23:00 90 25 142/60 (87) 88 04/07/17 22:00 98 21 140/64 (89) 92 04/07/17 22:00 96 04/07/17 21:00 98 21 142/64 (90) 92 04/07/17 20:00 98.2 96 24 141/65 (90) 92 04/07/17 20:00 94 04/07/17 19:51 94 Nasal Cannula 6.00 04/07/17 19:00 94 18 146/74 (98) 92 04/07/17 18:00 97.7 107 24 149/81 (103) 92 04/07/17 16:59 124 04/07/17 15:55 96.5 116 36 187/91 (123) 88 04/07/17 15:33 04/07/17 14:32 91 Nasal Cannula 5.00 04/07/17 14:28 103 24 180/75 (110) 86 4.00 04/07/17 14:22 Nasal Cannula 4.00 04/07/17 13:53 104 26 180/74 (109) 91 Nasal Cannula 4.00 04/07/17 12:24 111 26 183/74 (110) 88 Nasal Cannula 4.00 04/07/17 11:37 111 22 188/88 (121) 88 Nasal Cannula 4.00 04/07/17 11:19 Nasal Cannula 5.00 04/07/17 11:00 92 Nasal Cannula 5.00 04/07/17 10:59 103 26 190/73 (112) 93 Nasal Cannula 5.00 04/07/17 10:50 98.4 105 28 212/83 (126) 93 Nasal Cannula 5.00 04/07/17 10:48 (126) Result Diagram: 04/08/17 0548 04/08/17 0801 Imaging Last [address] Angiography 04/07/17 1144 Signed Impressions: Service Date/Time: Friday, April 07, 2017 12:10 - CONCLUSION: 1. Severe emphysema with stable right upper lobe nodule. 2. No evidence for pulmonary embolism 3. Multiple borderline enlarged mediastinal lymph nodes which are more prominent on current study. Molina Meneses MD Chest X-Ray 04/07/17 0000 Signed Impressions: Service Date/Time: Friday, April 07, 2017 11:38 - CONCLUSION: Interstitial densities likely chronic. Molina Meneses MD A/P Problem List: (1) COPD with acute exacerbation ICD Codes: J44.1 - Chronic obstructive pulmonary disease with (acute) exacerbation Status: Acute Plan: patient sent to [facility] [place] continue nebulizer iv steroids antibiotics oxygen respiratory therapy,pulmonary added nasal steroid (2) HTN (hypertension) ICD Codes: I10 - Essential (primary) hypertension Status: Chronic Plan: will use vasotec prn for elevations Assessment and Plan possible discharge to home tomorrow if stable Radhames Carrion MD Apr 08, 2017 10:48
[2017-04-08] MEDS: cefTRIAXone INJ 1,000 MG in SODIUM CHLORIDE 0.9% INJ 100 ML IV SCH (13:38)
--- NOTE | 2017-04-08 17:20 | HHI.PR ---
Subjective Remarks alert less sob less anxious Objective Vital Signs Date Time Temp Pulse Resp B/P (MAP) Pulse Ox O2 Delivery O2 Flow Rate FiO2 04/08/17 15:00 104 04/08/17 14:00 104 22 115/87 (96) 93 04/08/17 13:01 112 24 154/55 (88) 89 04/08/17 12:00 110 23 135/54 (81) 91 04/08/17 12:00 112 04/08/17 10:00 104 04/08/17 08:15 93 Nasal Cannula 6.00 04/08/17 08:00 97.7 106 29 146/67 (93) 89 04/08/17 08:00 90 04/08/17 06:00 100 26 153/70 (97) 97 04/08/17 05:00 96 22 139/66 (90) 98 04/08/17 04:26 Partial Rebreather 13.00 04/08/17 04:00 74 04/08/17 04:00 74 19 131/58 (82) 90 04/08/17 03:50 93 Venturi Mask 50 04/08/17 03:24 88 20 131/57 (81) 92 04/08/17 02:53 84 17 139/66 (90) 90 04/08/17 02:00 74 04/08/17 01:30 Venturi Mask 6.00 50 04/08/17 01:00 96 33 142/64 (90) 95 04/08/17 00:12 98.7 92 19 144/64 (90) 92 04/08/17 00:00 108 04/07/17 23:00 90 25 142/60 (87) 88 04/07/17 22:00 98 21 140/64 (89) 92 04/07/17 22:00 96 04/07/17 21:00 98 21 142/64 (90) 92 04/07/17 20:00 98.2 96 24 141/65 (90) 92 04/07/17 20:00 94 04/07/17 19:51 94 Nasal Cannula 6.00 04/07/17 19:00 94 18 146/74 (98) 92 04/07/17 18:00 97.7 107 24 149/81 (103) 92 I/O 04/07/17 04/07/17 04/07/17 04/08/1704/08/17 12/3/17 06:59 14:59 22:59 06:59 14:59 22:59 Intake Total 100 ml 300 ml 240 ml 100 ml Output Total 400 ml Balance 100 ml 300 ml -160 ml 100 ml Intake Oral 300 ml 240 ml IV Total 100 ml 100 ml Output Urine Total 400 ml # Voids 2 3 # Bowel Movements 0 Result Diagram: 04/08/17 0548 04/08/17 0801 Objective Remarks GENERAL: SKIN: Warm and dry. HEAD: Atraumatic. Normocephalic. EYES: Pupils equal and round. No scleral icterus. No injection or drainage. ENT: No nasal bleeding or discharge. Mucous membranes pink and moist. NECK: Trachea midline. No JVD. CARDIOVASCULAR: Regular rate and rhythm. RESPIRATORY: No accessory muscle use. Clear to auscultation. Breath sounds equal bilaterally. GASTROINTESTINAL: Abdomen soft, non-tender, nondistended. Hepatic and splenic margins not palpable. MUSCULOSKELETAL: Extremities without clubbing, cyanosis, or edema. No obvious deformities. NEUROLOGICAL: Awake and alert. No obvious cranial nerve deficits. Motor grossly within normal limits. Five out of 5 muscle strength in the arms and legs. Normal speech. PSYCHIATRIC: Appropriate mood and affect; insight and judgment normal. Assessment and Plan Assessment and Plan respiratory failure severe copd plan o2 as needed bronchodilators increase activity Sherrill Mccartney MD Apr 08, 2017 17:20
[2017-04-08] MEDS: FLUTICASONE 100 MCG/VILANTEROL 25 MCG INHALER INH SCH (17:54)
[2017-04-08] MEDS: MONTELUKAST SODIUM 10 MG TAB PO SCH (21:04)
--- NOTE | 2017-04-08 22:54 | EKG ---
Date Performed: 04/07/2017 Time Performed: 10:33:32 PTAGE: 71 years EKG: SINUS TACHYCARDIA MINIMAL ST DEPRESSION ABNORMAL RHYTHM ECG INTERPRETATION BASED ON A DEFAU LT AGE OF 40 YEARS PREVIOUS TRACING : 10/29/2015 09.16 \1 DOCTOR: Jon Cruz Interpretating Date/Time 04/08/2017 22:54:33
[2017-04-09] VITALS (16 sets, daily range): BP systolic 106–167; BP diastolic 50–77; PULSE 68–114; RESP 17–32; TEMP 97.6–98.1; O2SAT 79–94
[2017-04-09 05:53] LABS: POTASSIUM 4.2 MEQ/L (3.5-5.1)
[2017-04-09 05:58] LABS: BICARBONATE 24.2 MEQ/L (21.0-32.0)
[2017-04-09] MEDS ORDERED: methylPREDNISolone SOD SUCC 125 MG/2 ML VIAL IV ONE (06:00)
[2017-04-09] MEDS: RESP: ALBUTEROL 2.5 MG/IPRATROPIUM 0.5 MG NEB (SCH) NEB ×4 (07:37→20:02)
[2017-04-09] MEDS: FLUTICASONE 100 MCG/VILANTEROL 25 MCG INHALER INH SCH (08:19)
[2017-04-09] MEDS: CETIRIZINE HCL 10 MG TAB PO SCH (08:20)
[2017-04-09] MEDS: MULTIVITAMINS/MINERALS THERAPEUTIC TAB PO SCH (08:20)
[2017-04-09] MEDS: busPIRone HCL 5 MG TAB PO SCH ×2 (08:20→20:21)
[2017-04-09] MEDS: THEOPHYLLINE ER 24 HR 300 MG CAPCR PO SCH (08:20)
[2017-04-09] MEDS: ENALAPRIL MALEATE 10 MG TAB PO SCH (08:20)
--- NOTE | 2017-04-09 10:36 | HHI.PR ---
Subjective Remarks patient has significant drop in oxygen sat on any movement drop to 79% placed back on oxygen 6 liters nasal canula and back up to 93% . Will get PT to see and ask case management to see i feel will need rehab for further monitoring regarding ambulation and will need to see if have availability for 6 liters. Objective Vitals GENERAL: SKIN: Warm and dry. HEAD: Atraumatic. Normocephalic. EYES: Pupils equal and round. No scleral icterus. No injection or drainage. ENT: No nasal bleeding or discharge. Mucous membranes pink and moist. NECK: Trachea midline. No JVD. CARDIOVASCULAR: Regular rate and rhythm. RESPIRATORY: uses accessary muscle when moving with decrease breath sounds GASTROINTESTINAL: Abdomen soft, non-tender, nondistended. Hepatic and splenic margins not palpable. MUSCULOSKELETAL: Extremities without clubbing, cyanosis, or edema. No obvious deformities. NEUROLOGICAL: Awake and alert. No obvious cranial nerve deficits. Motor grossly within normal limits. Five out of 5 muscle strength in the arms and legs. Normal speech. PSYCHIATRIC: Appropriate mood and affect; insight and judgment normal. Vital Signs Date Time Temp Pulse Resp B/P (MAP) Pulse Ox O2 Delivery O2 Flow Rate FiO2 04/09/17 08:00 98.1 04/09/17 08:00 98.1 112 23 140/71 (94) 79 04/09/17 07:37 92 Nasal Cannula 6.00 04/09/17 07:00 93 04/09/17 05:23 68 04/09/17 05:04 82 19 162/66 (98) 94 04/09/17 04:59 98.1 88 19 164/67 (99) 93 04/09/17 04:55 90 18 156/77 (103) 93 04/09/17 02:00 82 18 167/77 (107) 94 04/09/17 00:55 100 20 151/69 (96) 87 04/08/17 23:55 106 28 156/69 (98) 89 04/08/17 23:05 86 04/08/17 22:56 114 23 162/67 (98) 80 04/08/17 21:56 102 18 108/59 (75) 92 04/08/17 21:02 108 22 133/56 (81) 91 04/08/17 20:57 110 20 136/59 (84) 93 04/08/17 19:59 92 Nasal Cannula 6.00 04/08/17 19:57 98.4 110 19 149/63 (91) 95 04/08/17 16:00 97.2 112 26 152/62 (92) 88 04/08/17 15:00 104 04/08/17 14:00 104 22 115/87 (96) 93 04/08/17 13:01 112 24 154/55 (88) 89 04/08/17 12:00 110 23 135/54 (81) 91 04/08/17 12:00 112 Result Diagram: 04/08/17 0548 04/09/17 0440 Imaging Last [address] Angiography 04/07/17 1144 Signed Impressions: Service Date/Time: Friday, April 07, 2017 12:10 - CONCLUSION: 1. Severe emphysema with stable right upper lobe nodule. 2. No evidence for pulmonary embolism 3. Multiple borderline enlarged mediastinal lymph nodes which are more prominent on current study. Molina Meneses MD Chest X-Ray 04/07/17 0000 Signed Impressions: Service Date/Time: Friday, April 07, 2017 11:38 - CONCLUSION: Interstitial densities likely chronic. Molina Meneses MD A/P Problem List: (1) COPD with acute exacerbation ICD Codes: J44.1 - Chronic obstructive pulmonary disease with (acute) exacerbation Status: Acute Plan: patient sent to [facility] [place] continue nebulizer iv steroids antibiotics oxygen respiratory therapy,pulmonary added nasal steroid i feel will need rehab for strengthening and monitoring (2) HTN (hypertension) ICD Codes: I10 - Essential (primary) hypertension Status: Chronic Plan: will use vasotec prn for elevations Assessment and Plan i do not feel comfortable to send patient home will opt for rehab maybe later today Discharge Planning as above Radhames Carrion MD Apr 09, 2017 10:36
[2017-04-09] MEDS: methylPREDNISolone SOD SUCC 40 MG/1 ML VIAL IV PUSH SCH ×3 (11:30→22:55)
[2017-04-09] MEDS: cefTRIAXone INJ 1,000 MG in SODIUM CHLORIDE 0.9% INJ 100 ML IV SCH (12:51)
--- NOTE | 2017-04-09 14:49 | HHI.PR ---
Subjective Remarks alert less sob less anxious Objective Vital Signs Date Time Temp Pulse Resp B/P (MAP) Pulse Ox O2 Delivery O2 Flow Rate FiO2 04/09/17 12:00 97.8 114 17 106/53 (70) 91 04/09/17 12:00 97.8 04/09/17 11:00 108 17 163/57 (92) 93 04/09/17 10:00 112 32 90 04/09/17 08:00 98.1 04/09/17 08:00 98.1 112 23 140/71 (94) 79 04/09/17 07:37 92 Nasal Cannula 6.00 04/09/17 07:00 93 04/09/17 05:23 68 04/09/17 05:04 82 19 162/66 (98) 94 04/09/17 04:59 98.1 88 19 164/67 (99) 93 04/09/17 04:55 90 18 156/77 (103) 93 04/09/17 02:00 82 18 167/77 (107) 94 04/09/17 00:55 100 20 151/69 (96) 87 04/08/17 23:55 106 28 156/69 (98) 89 04/08/17 23:05 86 04/08/17 22:56 114 23 162/67 (98) 80 04/08/17 21:56 102 18 108/59 (75) 92 04/08/17 21:02 108 22 133/56 (81) 91 04/08/17 20:57 110 20 136/59 (84) 93 04/08/17 19:59 92 Nasal Cannula 6.00 04/08/17 19:57 98.4 110 19 149/63 (91) 95 04/08/17 16:00 97.2 112 26 152/62 (92) 88 04/08/17 15:00 104 I/O 04/08/17 04/08/17 04/08/17 04/09/17 04/09/17 04/09/17 07:00 15:00 23:00 07:00 15:00 23:00 Intake Total 240 ml 100 ml 480 ml 100 ml Output Total 400 ml 600 ml 600 ml Balance -160 ml 100 ml -120 ml -600 ml 100 ml Intake Oral 240 ml 480 ml IV Total 100 ml 100 ml Output Urine Total 400 ml 600 ml 600 ml # Voids 3 # Bowel Movements 0 2 Result Diagram: 04/08/17 0548 04/09/17 0440 Objective Remarks GENERAL: SKIN: Warm and dry. HEAD: Atraumatic. Normocephalic. EYES: Pupils equal and round. No scleral icterus. No injection or drainage. ENT: No nasal bleeding or discharge. Mucous membranes pink and moist. NECK: Trachea midline. No JVD. CARDIOVASCULAR: Regular rate and rhythm. RESPIRATORY: No accessory muscle use. Clear to auscultation. Breath sounds equal bilaterally. GASTROINTESTINAL: Abdomen soft, non-tender, nondistended. Hepatic and splenic margins not palpable. MUSCULOSKELETAL: Extremities without clubbing, cyanosis, or edema. No obvious deformities. NEUROLOGICAL: Awake and alert. No obvious cranial nerve deficits. Motor grossly within normal limits. Five out of 5 muscle strength in the arms and legs. Normal speech. PSYCHIATRIC: Appropriate mood and affect; insight and judgment normal. Assessment and Plan Assessment and Plan respiratory failure severe copd plan o2 as needed bronchodilators increase activity Sherrill Mccartney MD Apr 09, 2017 14:49
[2017-04-09] MEDS: MONTELUKAST SODIUM 10 MG TAB PO SCH (20:21)
[2017-04-10] VITALS: BP 155/67; PULSE 104; PULSE 86; RESP 21; TEMP 97.9; O2SAT 92
[2017-04-10 04:00] VITALS: BP 160/64; PULSE 81; PULSE 88; RESP 16; TEMP 98.3; O2SAT 90
[2017-04-10] MEDS: methylPREDNISolone SOD SUCC 40 MG/1 ML VIAL IV PUSH SCH ×2 (05:18→12:14)
[2017-04-10] MEDS: RESP: ALBUTEROL 2.5 MG/IPRATROPIUM 0.5 MG NEB (SCH) NEB ×2 (07:42→11:35)
[2017-04-10 07:44] VITALS: O2SAT 94
[2017-04-10 08:00] VITALS: BP 173/79; PULSE 82; RESP 22; TEMP 98.4; O2SAT 91
[2017-04-10] MEDS: SODIUM CHLORIDE 0.9% FLUSH 10 ML FLUSH IVF PRN (08:44)
[2017-04-10] MEDS: FLUTICASONE 100 MCG/VILANTEROL 25 MCG INHALER INH SCH (08:45)
[2017-04-10] MEDS: busPIRone HCL 5 MG TAB PO SCH (08:45)
[2017-04-10] MEDS: CETIRIZINE HCL 10 MG TAB PO SCH (08:45)
[2017-04-10] MEDS: MULTIVITAMINS/MINERALS THERAPEUTIC TAB PO SCH (08:45)
[2017-04-10] MEDS: ENALAPRIL MALEATE 10 MG TAB PO SCH (08:45)
[2017-04-10] MEDS: THEOPHYLLINE ER 24 HR 300 MG CAPCR PO SCH (08:47)
[2017-04-10] MEDS ORDERED: CETI10 PO (11:07)
[2017-04-10] MEDS ORDERED: BUSP5TAB PO (11:07)
[2017-04-10] MEDS ORDERED: ENAL10TA PO (11:07)
[2017-04-10] MEDS ORDERED: Albuterol-Ipratropium Neb NEB (11:07)
[2017-04-10] MEDS ORDERED: PRED20 PO (11:07)
--- NOTE | 2017-04-10 11:16 | HHI.DS ---
Discharge Summary Admission Date Apr 07, 2017 at 12:57 Discharge Date: Apr 10, 2017 Admitting Diagnosis acute exacerbation COPD (1) COPD with acute exacerbation Diagnosis: Principal ICD Codes: J44.1 - Chronic obstructive pulmonary disease with (acute) exacerbation Status: Acute (2) HTN (hypertension) Diagnosis: Principal ICD Codes: I10 - Essential (primary) hypertension Status: Chronic Consultants pulmonary Brief History 71-year-old female complains of shortness of breath. Patient has history of COPD and chronically has shortness of breath. Patient's on home O2 3 L nasal cannula. Patient states that she has increasing shortness of breath with the past few days. Patient denies any coughing congestion. Patient denies any fever chills. Patient denies any chest pain. Patient has been using her nebulizer at home about twice a day. Patient also on Breo inhaler, theophylline , montelukast. Patient becomes hypoxic on any movement . Recently has been on steroid taper and has had some nasal congestion. In er had ABG done and oxygen sat 89% despite oxygen will admit and may need to go to IMC.. CBC/BMP: 04/08/17 0548 04/09/17 0440 Significant Findings Laboratory Tests Test 04/07/17 11:25 04/07/17 13:00 04/08/17 05:48 04/08/17 08:01 Blood Gas Oxygen Saturation 89 % (90-100) Arterial Blood pH 7.51 (7.380-7.420) Arterial Blood Partial Pressure CO2 31 mmHG (38-42) Red Blood Count 3.77 MIL/MM3 (4.00-5.30) Hematocrit 34.8 % (35.0-46.0) Neutrophils (%) (Auto) 89.0 % (16.0-70.0) Lymphocytes (%) (Auto) 7.7 % (9.0-44.0) Neutrophils # (Auto) 9.2 TH/MM3 (1.8-7.7) Lymphocytes # (Auto) 0.8 TH/MM3 (1.0-4.8) Blood Urea Nitrogen 19 MG/DL (7-18) Creatinine 1.10 MG/DL (0.50-1.00) Random Glucose 141 MG/DL (74-106) Calcium Level 8.4 MG/DL (8.5-10.1) Chloride Level 110 MEQ/L (98-107) Estimat Glomerular Filtration Rate 49 ML/MIN (>89) Theophylline Level 5.9 MCG/ML (10.0-20.0) Test 04/09/17 04:40 Blood Urea Nitrogen 30 MG/DL (7-18) Creatinine 1.30 MG/DL (0.50-1.00) Random Glucose 142 MG/DL (74-106) Chloride Level 109 MEQ/L (98-107) Estimat Glomerular Filtration Rate 40 ML/MIN (>89) PE at Discharge GENERAL: SKIN: Warm and dry. HEAD: Atraumatic. Normocephalic. EYES: Pupils equal and round. No scleral icterus. No injection or drainage. ENT: No nasal bleeding or discharge. Mucous membranes pink and moist. NECK: Trachea midline. No JVD. CARDIOVASCULAR: Regular rate and rhythm. RESPIRATORY: Decrease breath sounds bilateral GASTROINTESTINAL: Abdomen soft, non-tender, nondistended. Hepatic and splenic margins not palpable. MUSCULOSKELETAL: Extremities without clubbing, cyanosis, or edema. No obvious deformities. NEUROLOGICAL: Awake and alert. No obvious cranial nerve deficits. Motor grossly within normal limits. Five out of 5 muscle strength in the arms and legs. Normal speech. PSYCHIATRIC: Appropriate mood and affect; insight and judgment normal. Transfer Summary 71 y/o white female with severe copd on home oxygen had been on 3 liters was hypoxic started on steroids ,nubulizer initial antibiotics and required IMC and was having hypoxic episodes . Several attempts to change oxygen settings she did not want venti mask and concentrator is currently set at 6 liters and is tolerating it was unable to maintain at 5 liters . Until i can see if a 6liter concentrator is available for home will sent to rehab in [facility] as they are the only rehab that has 6 liters. I have discussed with [facility] case management and they will be working on home concentrator. Hospital Course Patient had CTA which was consistent with severe copd and Dr. Nina pulmonary saw patient and agreed with our treatment. Patient stable for transfer Pt Condition on Discharge: Stable Discharge Disposition: Discharge to SNF Discharge Instructions DIET: Follow Instructions for: Heart Healthy Diet Activities you can perform: See Additionl Instruction Other Activity Instructions: needs to be on oxygen on any exertional movements New Medications: Prednisone (Prednisone) 20 Mg Tab 40 MG PO DIRECTED for Dyspnea for 10 Days, #10 TAB 0 Refills Buspirone (Buspirone) 5 Mg Tab 5 MG PO Q12HR for Anxiety and/or Insomnia MDD 5, #30 TAB Cetirizine (Cetirizine) 10 Mg Tab 10 MG PO DAILY for Allergies MDD 10 mg for 30 Days, #30 TAB Enalapril (Enalapril) 10 Mg Tab 10 MG PO DAILY for HYPERTENSION MDD 10mg for 10 Days, #10 TAB [Albuterol-Ipratropium Neb] () 1 AMPULE NEBU 1 AMPULE NEB Q4HR WHILE AWAKE NEB for Dyspnea MDD 6, #60 BOTTLE Continued Medications: Fluticasone-Vilanterol Inh (Breo Ellipta Inh) 100-25 Mcg/Act Inh 1 PUFF INH DAILY, #1 INHALER 0 Refills Use daily at the same time. Montelukast (Montelukast) 10 Mg Tab 10 MG PO HS, #30 TAB 0 Refills Multiple Vitamins W/ Minerals (Centrum) 1 Chew 1 TAB CHEW DAILY for Nutritional Supplement, TAB 0 Refills Theophylline ER 24 HR (Theophylline ER 24 HR) 600 Mg Tab 600 MG PO DAILY, #30 TAB 0 Refills Radhames Carrion MD Apr 10, 2017 11:16
[2017-04-10 12:00] VITALS: BP 164/60; PULSE 102; RESP 29; TEMP 98.6; O2SAT 91
[2017-04-10] MEDS: cefTRIAXone INJ 1,000 MG in SODIUM CHLORIDE 0.9% INJ 100 ML IV SCH (12:14)
== END 2017-04-10 15:00 ==
LOC: PHED 10:24 → PHEDA 12:57 → PH3B 15:24 → PHICU 17:55
PROVIDERS: ADMIT Internal Medicine; ATTEND Internal Medicine
DX: J44.1 Chronic obstructive pulmonary disease with (acute) exacerbation (principal); J96.11 Chronic respiratory failure with hypoxia; R09.81 Nasal congestion; R59.0 Localized enlarged lymph nodes; R00.0 Tachycardia, unspecified; I10 Essential (primary) hypertension; E78.00 Pure hypercholesterolemia, unspecified; M54.5 Low back pain; M19.90 Unspecified osteoarthritis, unspecified site; Z99.81 Dependence on supplemental oxygen; Z87.891 Personal history of nicotine dependence; Z23 Encounter for immunization
CPT/HCPCS: 36600; 71010; 71275; 80048; 80053; 80198; 82805; 83605; 85025; 87040; 87804; 93005; 94640; 94664; 96365; 96366; 96372; 96375; 96376; 97110; 97162; 97530; 99285; G0008; G0378; G8987; G8988; J0456; J0696; J2920; J2930; J7050; Q2038; Q9967; 90471; 90686

== ENCOUNTER 2017-06-21 09:26 | Emergency (ER) | payer MEDICARE ==
[~2017-06-21] VITALS: Ht 157.5 cm; Wt 83.0 kg
[~2017-06-21 09:26] MED LIST changes: -ALBU2.5I INH; +Albuterol-Ipratropium Neb NEB; +BUSP5TAB PO; +CENTCHW4 CHEW; +CETI10 PO; +FLUT1INH INH; -FLUT1INH7 INH; -IPRA0.02 NEB; -MEDR4PAK PO; +MONT10TA4 PO; +PRED20 PO; +THEO600T PO
[2017-06-21 09:32] VITALS: BP 153/85; PULSE 87; RESP 16; TEMP 98.2; O2SAT 93
[2017-06-21 10:00] VITALS: BP 171/76
--- NOTE | 2017-06-21 10:22 | RADRPT ---
EXAM DATE/TIME: 06/21/2017 10:08 [facility] COMPARISON: No previous studies available for comparison. INDICATIONS : Right great toe swelling for 3 days. No injury. MEDICAL HISTORY : Hypertension. Chronic obstructive pulmonary disease. SURGICAL HISTORY : Cholecystectomy. ENCOUNTER: Initial ACUITY: 3 days PAIN SCORE: 8/10 LOCATION: Right great toe. FINDINGS: Examination of the first digit of the right foot demonstrates no evidence of fracture or dislocation. No radiopaque foreign bodies are seen. Generalized soft tissue swelling is noted. CONCLUSION: Soft tissue swelling without evidence of acute bony injury, significant arthropathy or destructive ch anges. Cedrick Mccoy MD on June 21, 2017 at 10:20 Board Certified Radiologist. This report was verified electronically.
[2017-06-21 10:53] VITALS: BP 145/76; PULSE 73; RESP 22; O2SAT 93
--- NOTE | 2017-06-21 10:54 | PD ---
HPI Chief Complaint: Musculoskeletal Complaint Time Seen by Provider: 09:36 Travel History International Travel<30 days: No Contact w/Intl Traveler<30days: No Traveled to known affect area: No History of Present Illness HPI This is a 71-year-old female who presents for right great toe pain. She states that she has had pain in her right great toe for 2-3 days. She does not remember injuring it. The pain is located at the base of the right great toe. There is mild surrounding edema. No focal weakness, numbness, tingling. No systemic symptoms such as fever, chills, vomiting or diarrhea. The pain is sore in nature. Aggravated by walking. Alleviated by rest. Onset gradual. Mild in severity. No history of similar symptoms. No history of gout. The patient wears 6 L of nasal cannula oxygen at all times due to COPD. She states that her breathing is unchanged from prior. PFSH Past Medical History Autoimmune Disease: No Anxiety: No Depression: No Cancer: No Cardiovascular Problems: No High Cholesterol: Yes (STOP TAKING MEDICATION) Chest Pain: No COPD: Yes Diabetes: No Diminished Hearing: No Endocrine: No Gastrointestinal Disorders: Yes (HX COLOSTOMY, GWENDOLYN) GERD: No Glaucoma: No Genitourinary: Yes Hepatitis: No Hiatal Hernia: No Hypertension: Yes Immune Disorder: No Implanted Vascular Access Dvce: Yes Kidney Stones: No Musculoskeletal: Yes (LOWER BACK PAIN) Neurologic: No Psychiatric: No Reproductive: No Respiratory: Yes (COPD) Renal Failure: No Sleep Apnea: No Thyroid Disease: No Ulcer: No Tetanus Vaccination: Unknown Influenza Vaccination: Yes Menopausal: Yes Past Surgical History Abdominal Surgery: Yes (UMBILICAL HERNIA, COLOSTOMY) AICD: No Arteriovenous Shunt: No Body Medical Devices: PROCEED MESH UMBILICAL HERNIA REPAIR Cardiac Surgery: No Cholecystectomy: Yes (2000) Ear Surgery: No Endocrine Surgery: No Eye Surgery: No Genitourinary Surgery: No Gynecologic Surgery: No Insulin Pump: No Joint Replacement: No Oral Surgery: No Pacemaker: No Thoracic Surgery: No Other Surgery: Yes Social History Alcohol Use: No Tobacco Use: No Substance Use: No Allergies-Medications (Allergen,Severity, Reaction): Coded Allergies: hydrocodone (Unverified Adverse Reaction, Intermediate, emesis, 06/21/17) Uncoded Allergies: NOT ALLERGIC TO LOPID OR LISINOPRIL STATES PATIENT (Adverse Reaction, Mild, 06/07/10) Reported Meds & Prescriptions Reported Meds & Active Scripts Active Enalapril (Enalapril Maleate) 10 Mg Tab 10 Mg PO DAILY MDD 10mg 10 Days [Albuterol-Ipratropium Neb] 1 AMPULE Nebu 1 Ampule NEB Q4HR WHILE AWAKE NEB MDD 6 Reported Centrum (Multiple Vitamins W/ Minerals) 1 Chew 1 Tab CHEW DAILY Montelukast (Montelukast Sodium) 10 Mg Tab 10 Mg PO HS Theophylline ER 24 HR (Theophylline) 600 Mg Tab 600 Mg PO DAILY Breo Ellipta Inh (Fluticasone/Vilanterol) 100-25 Mcg/Act Inh 1 Puff INH DAILY Use daily at the same time. Review of Systems Except as stated in HPI: all other systems reviewed are Neg Physical Exam Narrative GENERAL: Alert, well nourished, well appearing patient resting on the bed in no acute distress. Vital Signs reviewed SKIN: Focused skin assessment warm/dry. HEAD: Atraumatic. Normocephalic. EYES: Pupils equal and round. No scleral icterus. No injection or drainage. ENT: No nasal bleeding or discharge. Mucous membranes pink and moist. NECK: Trachea midline. No JVD. Spontaneous, painless full range of motion with no meningismus CARDIOVASCULAR: Regular rate and rhythm. No murmur appreciated. Extremities warm and well perfused with bounding peripheral pulses RESPIRATORY: No accessory muscle use. Clear to auscultation. Breath sounds equal bilaterally. Breathing easily and speaking in full sentences MUSCULOSKELETAL: No obvious deformities. No clubbing. No cyanosis. Right lower extremity: Painless full range of motion of right knee and ankle. There is tenderness with soft edema at the base of the right great toe. No overlying erythema. Patient has pain with flexion of right toe. Sensation and capillary refill are intact. No tenderness along the rest of the foot or other toes. NEUROLOGICAL: Awake and alert. No obvious cranial nerve deficits. Motor grossly within normal limits. Normal speech. Sensation intact Data Data Last Documented VS Vital Signs Date Time Temp Pulse Resp B/P (MAP) Pulse Ox O2 Delivery O2 Flow Rate FiO2 06/21/17 10:53 73 22 145/76 (99) 93 Nasal Cannula 6.00 06/21/17 09:32 98.2 Orders Orders Toe (Min 2vws) (06/21/17 09:51) Acetamin-Hydrocod 325-5 Mg ([place] 5-325 (06/21/17 11:00) MDM Medical Decision Making Medical Screen Exam Complete: Yes Emergency Medical Condition: Yes Interpretation(s) Last 24 hours Impressions Toe X-Ray 06/21/17 0951 Signed Impressions: Service Date/Time: June 10:08 - CONCLUSION: Soft tissue swelling without evidence of acute bony injury, significant arthropathy or destructive changes. Cedrick Mccoy MD Differential Diagnosis Gout, inflammatory arthritis, occult fracture, arthritis, septic joint less likely Narrative Course The patient appears very well. She has no overlying erythema or fever to suggest septic joint. This is likely an inflammatory arthritis. She was given a dose of Lortab in the emergency department. Patient reiterates that she is not allergic to hydrocodone. I spoke with her regarding the results of the x- ray and plan for discharge with supportive care, Naprosyn for pain. Patient understands the importance of close outpatient follow-up. She understands she may require further testing and treatment as an outpatient. She understands strict return indications. She is comfortable with this plan and eager to go home. Diagnosis Primary Impression: Inflammatory arthritis Referrals: Rhea Marcelo DPM 1 week Primary Care Physician 1 day Patient Instructions: General Instructions, Gout (DC), Narcotic given in the ED Additional Instructions: Keep foot elevated when at rest. Use ice as directed. Use Aleve as directed on the bottle for no more than 3 days. Follow-up with primary physician, preferably tomorrow. Call today to make an appointment. Follow-up with marble helper. Return with worsening symptoms including uncontrolled pain, fever, redness of the toe or foot, other concerns. Med/Other Pt SpecificInfo: No Change to Meds Disposition: 01 DISCHARGE HOME Condition: Stable Nolvia Doherty MD Jun 21, 2017 10:54
[2017-06-21] MEDS ORDERED: ACETAMINOPHEN/HYDROcodone 325 MG/5 MG TAB PO ONE (11:00)
[2017-06-21 11:31] VITALS: RESP 23
== END 2017-06-21 11:33 | disposition home or self-care (01) ==
LOC: PHED 09:26
DX: M06.4 Inflammatory polyarthropathy (principal); I10 Essential (primary) hypertension; J44.9 Chronic obstructive pulmonary disease, unspecified; E78.00 Pure hypercholesterolemia, unspecified; Z88.5 Allergy status to narcotic agent; Z79.899 Other long term (current) drug therapy
CPT/HCPCS: 73660; 99283